=== PATIENT | female | born 1935 | race Caucasian/White ===

== ENCOUNTER 2016-11-01 16:48 | Inpatient (IN) | payer MEDICARE, BC ==
[2016-11-01] MEDS ORDERED: Temazepam 15 MG Cap PO PRN (17:26)
[2016-11-01] MEDS ORDERED: Magnesium Hydroxide 400 MG/5 ML Susp 30 ML Cup PO PRN (17:26)
[2016-11-01] MEDS ORDERED: cefTRIAXone 1 GM Vial IVPUSH SCH (18:00)
[2016-11-01] MEDS: Acetaminophen 325 MG Tab PO PRN (18:14)
[2016-11-01] MEDS: Sodium Chloride 0.9% 1,000 ML IV SCH (19:19)
[2016-11-01] MEDS: Carvedilol 3.125 MG Tab PO SCH (20:14)
[2016-11-01] MEDS: prednisoLONE Acetate 1% Ophth Susp 5 ML Bottle EYELF SCH (20:21)
[2016-11-02] MEDS: Acetaminophen 325 MG Tab PO PRN (00:44)
[2016-11-02] MEDS: Levothyroxine 112 MCG Tab PO SCH ×2 (06:50→13:54)
[2016-11-02] MEDS ORDERED: Acetaminophen 650 MG Supp RECTAL PRN (07:39)
[2016-11-02] MEDS: Carvedilol 3.125 MG Tab PO SCH (07:59)
[2016-11-02] MEDS ORDERED: Enoxaparin 30 MG/0.3 ML Syringe SUBCUT SCH (08:00)
[2016-11-02] MEDS: prednisoLONE Acetate 1% Ophth Susp 5 ML Bottle EYELF SCH ×2 (08:00→13:53)
--- NOTE | 2016-11-02 09:21 | PN ---
DATE: 11/02/2016 S: This is an elderly white female who has had chronic renal insufficiency and senior care diabetes, was admitted after she fell and somewhat confused. O: On examination this morning, NECK: Supple. CHEST: Crepitus bilaterally. CARDIAC: Sounds are good. ABDOMEN: Soft. ASSESSMENT: THE PATIENT IS SOMEWHAT INCOHERENT. P: I talked to her at length about continued dialysis, halfway placement in [place], and she really does not want anything to do with that. She said she is ready to pass on. I talked at length with daughter and [id number] about this, and they are contacting rest of the family about just going comfort measures and no further lab and x-ray, and I am certainly in agreement with that. KENNEY /[id number]
[2016-11-02] MEDS ORDERED: Morphine 2 MG/ML Syringe IVPUSH PRN (11:10)
[2016-11-02] MEDS ORDERED: LORazepam 2 MG/ML Syringe IVPUSH PRN (11:11)
[2016-11-02] MEDS ORDERED: fentaNYL 100 MCG/2 ML SDV IV PRN (11:26)
[2016-11-02] MEDS: Sodium Chloride 0.9% 1,000 ML IV SCH (13:58)
[2016-11-02] MEDS: fentaNYL 100 MCG/2 ML SDV IVPUSH SCH (20:11)
[2016-11-03 08:12] VITALS: BP 184/76
[2016-11-03] MEDS: fentaNYL 100 MCG/2 ML SDV IVPUSH SCH (08:20)
--- NOTE | 2016-11-03 09:43 | DISCH ---
HOSPITAL COURSE: This is an elderly white female who came in after she got confused, fell and hit her head. CT of the head, I have not seen the reports, but creatinine is up to 6.1. She has had a long-standing history of diabetes, renal insufficiency requiring dialysis at least twice a week. I talked to her at length and she is mildly clear, but she does not want to go to the jail, does not want further dialysis. Talked to the family and they want comfort measures only and I am in full agreement with that. This lady has had no quality of life. DISPOSITION: The patient is now discharged to palliative care with morphine and Ativan IV, we will stop. No further lab or x-ray. No further prescription medications, just Tylenol and comfort measures. KENNEY /[id number]
--- NOTE | 2016-11-03 10:27 | PN ---
DATE: 11/03/2016 This 81-year-old female with chronic and acute renal insufficiency decided that she did not want to be resuscitated, want to put on comfort cares. Now, this morning, she has changed her mind and is thinking about dialysis. So, I will get appropriate lab work done this morning and do appropriate transfers. CORRINE/MATT /[id number]
--- NOTE | 2016-11-04 07:39 | DISCH ---
HOSPITAL COURSE: This elderly white female came in with confusion. We did do a CT of her head, which really did not show any acute changes, although I do not have the report. I did look at myself. She was in acute renal insufficiency. I talked at length with the family and the patient. She did not want to get anymore dialysis and so we put her on comfort cares. This morning, she had a new revolution and decided she wanted dialysis. Lab here in the hospital, creatinine on admission was little over 5, little over 6 yesterday, today is 6.2. ProBNP is 37,000. C-reactive protein is elevated. DISPOSITION: The patient is now discharged to home. For dialysis per family in [place] with the possibility being admitted to [facility]. DISCHARGE MEDICATIONS: Home medications plus Ceftin 250 p.o. b.i.d. for 8 days. DISCHARGE DIAGNOSIS: 1. URINARY TRACT INFECTION. 2. ACUTE AND CHRONIC RENAL INSUFFICIENCY. 3. LEFT VENTRICULAR SYSTOLIC CONGESTIVE HEART FAILURE. 4. DIABETES MELLITUS. 5. HYPERTENSION. CORRINE/MATT /[id number]
== END 2016-11-03 10:05 | disposition home or self-care (01) | DRG 291 ==
LOC: CC.MS 16:48 → CC.FCMC 16:48 → CC.MS 17:15 → UNDOADMIN 17:15 → CC.MS 17:26
PROVIDERS: ADMIT Physician Assistant Medical; ATTEND General Practice
DX: I13.2 Hypertensive heart and chronic kidney disease with heart failure and with stage 5 chronic kidney disease, or end stage renal disease (principal); N18.6 End stage renal disease; N39.0 Urinary tract infection, site not specified; I50.20 Unspecified systolic (congestive) heart failure; N17.9 Acute kidney failure, unspecified; E11.22 Type 2 diabetes mellitus with diabetic chronic kidney disease; Z66 Do not resuscitate; W19.XXXA Unspecified fall, initial encounter; Y92.009 Unspecified place in unspecified non-institutional (private) residence as the place of occurrence of the external cause; Z99.2 Dependence on renal dialysis; Z87.891 Personal history of nicotine dependence; Z79.1 Long term (current) use of non-steroidal anti-inflammatories (NSAID); Z79.899 Other long term (current) drug therapy
CPT/HCPCS: 36415; 51702; 70450; 80048; 80053; 81001; 83735; 83880; 84439; 84443; 85025; 86140; 87040; A9270-GY; J0696; J1650; J3010; J7030

== ENCOUNTER 2018-05-17 11:13 | Inpatient (IN) | payer MEDICARE, BC ==
[2018-05-17 12:14] LABS: CHLORIDE,CL 100 mEq/L (98-106); SODIUM,NA 143 mEq/L (136-145)
[2018-05-17] MEDS ORDERED: Ondansetron 4 MG/2 ML SDV IV PRN (13:46)
[2018-05-17] MEDS ORDERED: Sodium Chloride 0.9% 10 ML Syringe FLUSH PRN (13:46)
[2018-05-17] MEDS ORDERED: Docusate Sodium 100 MG Cap PO PRN (13:46)
[2018-05-17] MEDS ORDERED: Morphine 2 MG/ML Syringe IVPUSH PRN (13:46)
[2018-05-17] MEDS ORDERED: Nitroglycerin 2% Oint 1 GM UD Packet TOP SCH (14:00)
[2018-05-17] MEDS: Aspirin 325 MG Tab.EC PO SCH (15:16)
[2018-05-17] MEDS: Enoxaparin 30 MG/0.3 ML Syringe SUBCUT SCH (15:19)
[2018-05-17] MEDS: Pantoprazole 40 MG Vial IVPUSH SCH (15:20)
[2018-05-17] MEDS: Nitroglycerin 2% Oint 1 GM UD Packet TOP SCH (23:18)
[2018-05-18] MEDS: Aspirin 325 MG Tab.EC PO SCH (07:39)
[2018-05-18] MEDS ORDERED: Polyvinyl Alcohol 1.4% Ophth Soln 15 ML Bottle EYEBOTH PRN (08:37)
[2018-05-18] MEDS: Nitroglycerin 2% Oint 1 GM UD Packet TOP SCH ×3 (09:12→23:39)
[2018-05-18] MEDS ORDERED: Acetaminophen 500 MG Tab ONE (12:41)
--- NOTE | 2018-05-18 12:55 | PCM.PN ---
- General Info Date of Service: 05/18/18 Admission Dx/Problem (Free Text): Acute [place] Functional Status: Reports: Pain Controlled, Tolerating Diet - Review of Systems General: Reports: Weakness, Fatigue HEENT: Reports: No Symptoms Pulmonary: Reports: Cough. Denies: Shortness of Breath Cardiovascular: Denies: Chest Pain, Lightheadedness Gastrointestinal: Reports: Decreased Appetite, Nausea. Denies: Abdominal Pain, Vomiting Musculoskeletal: Reports: Back Pain Skin: Reports: No Symptoms Neurological: Reports: Weakness - Patient Data Vitals - Most Recent: Last Vital Signs Temp 99 F 05/18/18 12:00 Pulse 68 05/18/18 12:00 Resp 18 05/18/18 12:00 BP 96/46 L 05/18/18 12:00 Pulse Ox 94 L 05/18/18 12:00 Weight - Most Recent: 130 lb 8 oz Lab Results Last 24 Hours: Laboratory Results - last 24 hr 05/18/18 Range/Units 09:00 Troponin I (0.00-0.06) ng/mL C-Reactive Protein 26.2 H (0.2-0.8) mg/dL Med Orders - Current: Current Medications Acetaminophen (Tylenol Extra Strength) 1,000 mg PO BID [facility] Artificial Tears (Liquitears 1.4% Ophth Soln) 0 ml EYEBOTH DAILY PRN PRN Reason: Dry Eyes Aspirin (Ecotrin) 325 mg PO DAILY [facility] Last Admin: 05/18/18 07:39 Dose: 325 mg Carvedilol (Coreg) 3.125 mg PO BID [facility] Docusate Sodium (Colace) 100 mg PO BID PRN PRN Reason: Constipation Enoxaparin Sodium (Lovenox) 30 mg SUBCUT Q24H [facility] Last Admin: 05/17/18 15:19 Dose: 30 mg Levothyroxine Sodium (Levothyroxine) 112 mcg PO DAILY [facility] Morphine Sulfate (Morphine) 2 mg IVPUSH Q2H PRN PRN Reason: Pain (severe 7-10) Nitroglycerin (Nitro-Bid 2%) 1 gm TOP TID@0000,0800,1600 [facility] Last Admin: 05/18/18 09:12 Dose: Not Given Ondansetron HCl (Zofran) 4 mg IV Q6H PRN PRN Reason: Nausea/Vomiting Pantoprazole Sodium (Protonix Iv) 40 mg IVPUSH Q24H [facility] Last Admin: 05/17/18 15:20 Dose: 40 mg Sodium Chloride (Saline Flush) 10 ml FLUSH ASDIRECTED PRN PRN Reason: Keep Vein Open Discontinued Medications Acetaminophen (Tylenol Extra Strength) Confirm Administered Dose 1,000 mg .ROUTE .STK-MED ONE Stop: 05/18/18 12:42 Nitroglycerin (Nitro-Bid 2%) 1 gm TOP Q8H [facility] Last Admin: 05/17/18 15:16 Dose: 1 gm - Exam General: Alert, Oriented HEENT: Mucous Membr. Moist/[place] Neck: Supple Lungs: Decreased Breath Sounds, Crackles (RLL) Cardiovascular: Regular Rate, Regular Rhythm, Murmurs GI/Abdominal Exam: Normal Bowel Sounds, Soft, Non-Tender Extremities: Normal Inspection, No Pedal Edema Skin: Warm, Dry Neurological: No New Focal Deficit - Problem List & Annotations (1) Acute [place] SNOMED Code(s): 55712780 Code(s): I21.9 - ACUTE MYOCARDIAL INFARCTION, UNSPECIFIED Status: Acute Priority: High Current Visit: Yes Qualifiers: Myocardial infarction type: non-ST elevation myocardial infarction Qualified Code(s): I21.4 - Non-ST elevation (NSTEMI) myocardial infarction (2) Palliative care status SNOMED Code(s): 657307490 Code(s): Z51.5 - ENCOUNTER FOR PALLIATIVE CARE Status: Acute Priority: High Current Visit: Yes - Problem List Review Problem List Initiated/Reviewed/Updated: Yes - Assessment Assessment:: Acute NSTEMI Acute CKD Palliative Care Status - Plan Plan:: Patient is doing well this am. Denies any chest pain or shortness of breath. Does still have back pain. Mild nausea, no vomiting. Not much of an appetite. Troponin on admit was 50, EKG showed NSTEMI. Chest xray with right pleural effusion. Blood pressure has been running low, unable to tolerate the nitropaste due to this. Is currently on low dose Coreg. Patient has history of CKD, due for dialysis on Tuesday, creatinine of 4.9. Will continue with BID Lovenox. Watch blood pressure, determine if able to use nitropaste Obtain repeat troponin and ProBNP today as well as CRP. Monitor telemetry. Possible discharge home tomorrow so can receive next scheduled dialysis.
[2018-05-18] MEDS: Pantoprazole 40 MG Vial IVPUSH SCH (13:02)
[2018-05-18] MEDS: Enoxaparin 30 MG/0.3 ML Syringe SUBCUT SCH (15:29)
[2018-05-18] MEDS: Acetaminophen 500 MG Tab PO SCH (20:07)
[2018-05-18] MEDS: Carvedilol 3.125 MG Tab PO SCH (20:09)
[2018-05-19] MEDS: Carvedilol 3.125 MG Tab PO SCH (07:22)
[2018-05-19] MEDS: Aspirin 325 MG Tab.EC PO SCH (07:22)
[2018-05-19] MEDS: Acetaminophen 500 MG Tab PO SCH (07:23)
[2018-05-19] MEDS: Nitroglycerin 2% Oint 1 GM UD Packet TOP SCH (07:23)
[2018-05-19 07:26] VITALS: BP 99/54
[2018-05-19] MEDS ORDERED: Levothyroxine 112 MCG Tab PO SCH (08:00)
[2018-05-19] MEDS ORDERED: cefTRIAXone 1 GM Vial IM ONE (10:45)
--- NOTE | 2018-05-19 15:35 | PCM.DCSUM1 ---
Discharge Summary - Hospital Course Free Text/Narrative:: Patient presented to see Dr. Cueva with complaints of nausea and back pain. Had not felt well for 3 days. Family noted mild cough. Work up done at the clinic by Dr. Cueva indicated acute NSTEMI. Had notable changes on EKG, troponin of 50. Had pleural effusion noted on chest xray. Initially patient was adamant about not being admitted as she does not want any aggressive treatment done, currently on dialysis. Dr. Cueva also spoke with ANISHA, daughter, who is well aware that she does not want to be admitted or have treatment for this CO. Did agree to start ASA and ImDur. [place] [facility] [place] and then decided to be admitted. Was then started on ASA 325 mg, nitropaste and Lovenox BID. Diagnosis: Stroke: No Modified Daggett Scale: No Symptoms at All Modified Daggett Scale Score: 0 - Discharge Data Discharge Date: 05/19/18 Discharge Disposition: Home, Self-Care 01 Condition: Good - Discharge Diagnosis/Problem(s) (1) Acute [place] SNOMED Code(s): 22649527 ICD Code: I21.9 - ACUTE MYOCARDIAL INFARCTION, UNSPECIFIED Status: Acute Priority: High Qualifiers: Myocardial infarction type: non-ST elevation myocardial infarction Qualified Code(s): I21.4 - Non-ST elevation (NSTEMI) myocardial infarction (2) Palliative care status SNOMED Code(s): 938135606 ICD Code: Z51.5 - ENCOUNTER FOR PALLIATIVE CARE Status: Acute Priority: High - Patient Summary/Data Complications: none Hospital Course: Patient has done well during stay. She no longer has back pain or nausea. Blood pressure has been low so is unable to tolerate nitropaste. Is currently on low dose Coreg. Has been getting ASA. Troponin did improve to 40 yesterday. has not developed any chest pain at all. No edema. Does have mild cough and gets short of breath with exertion. ProBNP 83090. Did not given any diuretics due to high creatinine and will await dialysis that is scheduled on Tuesday to take off extra fluid. Echocardiogram was done, shows ejection fraction of 15% with severe aortic stenosis. Family is aware of status, labs, blood work and echocardiogram. Do not want aggressive treatment done for this per patient's wishes. Patient wants basic care here in [place], did not want to be transferred. She is currently living at the [facility] with extra care provided by family and TONY as needed. Will continue on ASA. Follow up with Dr. Cueva in one week. Dialysis arranged for today in [place] due to high need for it today and potential storm tomorrow. - Patient Instructions Diet: Usual Diet as Tolerated Activity: As Tolerated Other/Special Instructions: Blood pressures monthly as per routine - Discharge Plan *PRESCRIPTION DRUG MONITORING PROGRAM REVIEWED*: No *COPY OF PRESCRIPTION DRUG MONITORING REPORT IN PATIENT ARSALAN: No Prescriptions/Med Rec: Aspirin [Ecotrin] 325 mg PO DAILY #30 tab.ec Home Medications: Home Meds Ascorbic Acid [Vitamin C] 1,000 mg PO BID 12/28/13 [History] Calcium Acetate [PhosLo] 1 cap PO TID 12/28/13 [History] Carvedilol [Coreg] 3.125 tab PO BID 12/28/13 [History] Levothyroxine 112 mcg PO DAILY 12/28/13 [History] Cholecalciferol (Vitamin D3) [Vitamin D3] 2,000 unit PO DAILY 07/24/14 [History] Acetaminophen [Pain Reliever] 1,000 mg PO BID 11/01/16 [History] Carboxymethylcellulose Sodium [Refresh Tears] 1 drop EYEBOTH DAILY PRN 05/17/18 [History] Lidocaine/Prilocaine [EMLA Crm] 1 applic TOP DAILY PRN 05/17/18 [History] Aspirin [Ecotrin] 325 mg PO DAILY #30 tab.ec 05/19/18 [Rx] Referrals: Steven Cueva MD [Primary Care Provider] - (Follow up with Dr. Cueva in one week) - Discharge Summary/Plan Comment DC Time >30 min.: No - General Info Date of Service: 05/19/18 Admission Dx/Problem (Free Text: Acute [place] Functional Status: Reports: Pain Controlled, Tolerating Diet, Ambulating - Review of Systems General: Reports: Weakness, Fatigue HEENT: Reports: No Symptoms Pulmonary: Reports: Cough. Denies: Shortness of Breath Cardiovascular: Denies: Chest Pain, Edema, Lightheadedness Gastrointestinal: Reports: Nausea. Denies: Abdominal Pain, Vomiting Musculoskeletal: Reports: Back Pain Skin: Reports: No Symptoms Neurological: Reports: No Symptoms - Patient Data Vitals - Most Recent: Last Vital Signs Temp 97.6 F 05/19/18 07:25 Pulse 65 05/19/18 07:25 Resp 18 05/19/18 07:25 BP 99/54 L 05/19/18 07:25 Pulse Ox 60 L 05/19/18 07:25 Weight - Most Recent: 130 lb 8 oz Lab Results - Last 24 hrs: Laboratory Results - last 24 hr 05/19/18 05/19/18 Range/Units 07:40 08:00 WBC 9.2 (5.0-10.0) 10^3/uL RBC 3.67 L (4.00-5.50) 10^6/uL Hgb 11.3 L (12.0-16.0) g/dL Hct 37.0 (37.0-47.0) % MCV 100.8 H (82.0-94.0) fL MCH 30.8 (27.0-32.0) pg MCHC 30.5 L (33.0-38.0) g/dL RDW Coeff of Neel 16.6 H (11.0-15.0) % Plt Count 187 (150-400) 10^3/uL Neut % (Auto) 75.8 (35-85) % Lymph % (Auto) 15.3 (10-55) % [place] % (Auto) 7.0 (0-16) % Eos % (Auto) 1.7 (0-5) % Baso % (Auto) 0.2 (0-3) % Neut # (Auto) 6.95 (1.80-7.00) 10^3/uL Lymph # (Auto) 1.40 (1.00-4.80) 10^3/uL [place] # (Auto) 0.64 (0.00-0.80) 10^3/uL Eos # (Auto) 0.16 (0.00-0.45) 10^3/uL Baso # (Auto) 0.02 10^3/uL Sodium 139 (136-145) mEq/L Potassium 3.6 (3.5-5.0) mEq/L Chloride 95 L (98-106) mEq/L Carbon Dioxide 29 (21-32) mmol/L BUN 41 H D (7-18) mg/dL Creatinine 7.1 H* (0.6-1.0) mg/dL Est Cr Clr Drug Dosing 4.31 mL/min Estimated GFR (MDRD) 6 L (>=60) mL/min Glucose 110 H (75-99) mg/dL Calcium 9.0 (8.4-10.1) mg/dL Troponin I 33.957 H* (0.00-0.06) ng/mL C-Reactive Protein 33.3 H (0.2-0.8) mg/dL Med Orders - Current: Current Medications Discontinued Medications Acetaminophen (Tylenol Extra Strength) 1,000 mg PO BID [facility] Last Admin: 05/19/18 07:23 Dose: 1,000 mg Acetaminophen (Tylenol Extra Strength) Confirm Administered Dose 1,000 mg .ROUTE .STK-MED ONE Stop: 05/18/18 12:42 Last Admin: 05/18/18 13:02 Dose: 1,000 mg Artificial Tears (Liquitears 1.4% Ophth Soln) 0 ml EYEBOTH DAILY PRN PRN Reason: Dry Eyes Aspirin (Ecotrin) 325 mg PO DAILY [facility] Last Admin: 05/19/18 07:22 Dose: 325 mg Carvedilol (Coreg) 3.125 mg PO BID [facility] Last Admin: 05/19/18 07:22 Dose: 3.125 mg Ceftriaxone Sodium (Rocephin) 1 gm IM ONETIME ONE Stop: 05/19/18 10:46 Docusate Sodium (Colace) 100 mg PO BID PRN PRN Reason: Constipation Enoxaparin Sodium (Lovenox) 30 mg SUBCUT Q24H [facility] Last Admin: 05/18/18 15:29 Dose: 30 mg Levothyroxine Sodium (Levothyroxine) 112 mcg PO DAILY [facility] Last Admin: 05/19/18 07:22 Dose: 112 mcg Morphine Sulfate (Morphine) 2 mg IVPUSH Q2H PRN PRN Reason: Pain (severe 7-10) Nitroglycerin (Nitro-Bid 2%) 1 gm TOP Q8H [facility] Last Admin: 05/17/18 15:16 Dose: 1 gm Nitroglycerin (Nitro-Bid 2%) 1 gm TOP TID@0000,0800,1600 [facility] Last Admin: 05/19/18 07:23 Dose: Not Given Ondansetron HCl (Zofran) 4 mg IV Q6H PRN PRN Reason: Nausea/Vomiting Pantoprazole Sodium (Protonix Iv) 40 mg IVPUSH Q24H [facility] Last Admin: 05/18/18 13:02 Dose: 40 mg Sodium Chloride (Saline Flush) 10 ml FLUSH ASDIRECTED PRN PRN Reason: Keep Vein Open - Exam General: Reports: Alert, Oriented HEENT: Reports: Mucous Membr. Moist/[place] Neck: Reports: Supple Lungs: Reports: Decreased Breath Sounds, Crackles (RLL) Cardiovascular: Reports: Regular Rate, Regular Rhythm GI/Abdominal Exam: Normal Bowel Sounds, Soft, Non-Tender Extremities: Normal Inspection, No Pedal Edema Skin: Reports: Warm, Dry Neurological: Reports: No New Focal Deficit
== END 2018-05-19 11:30 | disposition home or self-care (01) | DRG 280 ==
LOC: CC.MS 11:13 → CC.FCMC 11:13 → CC.MS 13:31 → UNDOADMIN 13:31 → CC.MS 13:46
PROVIDERS: ADMIT Family Medicine; ATTEND Family Medicine
DX: I21.4 Non-ST elevation (NSTEMI) myocardial infarction (principal); N18.6 End stage renal disease; J90 Pleural effusion, not elsewhere classified; N17.9 Acute kidney failure, unspecified; I12.0 Hypertensive chronic kidney disease with stage 5 chronic kidney disease or end stage renal disease; Z51.5 Encounter for palliative care; R11.0 Nausea; R05 Cough; I10 Essential (primary) hypertension; E78.00 Pure hypercholesterolemia, unspecified; I35.0 Nonrheumatic aortic (valve) stenosis; I12.9 Hypertensive chronic kidney disease with stage 1 through stage 4 chronic kidney disease, or unspecified chronic kidney disease; Z99.2 Dependence on renal dialysis; Z79.82 Long term (current) use of aspirin; Z79.899 Other long term (current) drug therapy; Z98.49 Cataract extraction status, unspecified eye; Z87.891 Personal history of nicotine dependence
CPT/HCPCS: 36415; 71046; 74022; 80048; 80053; 83880; 84484; 85025; 86140; 93005; 93010; 93306; A9270-GY; C9113; J1650